=== PATIENT | male | born 1990 | race Caucasian/White ===

== ENCOUNTER 2021-10-26 22:06 | Emergency (ER) | payer OTHER ==
[~2021-10-26 22:06] MED LIST: IBUPROFEN800 MG PO
[2021-10-27 01:39] LABS: BASOPHIL 0.3 % (0-2); EOSINOPHIL 0.1 % (0-5); HCT 48.7 % (42.0-52.0); HGB 16.7 g/dl (13.2-18.0); MCH 32.4 pg (25.0-31.0); MCHC 34.3 g/dL (32.0-36.0); MCV 94.6 fL (78.0-100.0); MONOCYTE 6.4 % (0-12); MPV 10.9 fL (6.0-9.5); NEUTROPHIL 79.1 % (41-80); NRBC 0; PLT 211 K/uL (150-400); RBC 5.15 M/uL (4.70-6.00); RDW 12.2 % (11.5-14.0); WBC 7.2 K/uL (4.0-10.5)
[2021-10-27 02:22] LABS: ALBUMIN 4.3 g/dL (3.4-5.0); BILIRUBIN - TOTAL 0.2 mg/dL (0.2-1.0); BUN/CREAT RATIO (CALC) 12.2 RATIO; CREATININE 0.82 mg/dL (0.67-1.17); GLOBULIN (CALCULATION) 3.3 g/dL; POTASSIUM 3.8 mmol/L (3.5-5.1); TOTAL PROTEIN 7.6 g/dL (6.4-8.2)
[2021-10-27 02:44] LABS: INFLUENZA A NAA NEGATIVE (NEGATIVE)
[2021-10-27 02:46] LABS: CORONAVIRUS 2019 SARS-COV-2 POSITIVE (NEGATIVE)
[2021-10-27] MEDS ORDERED: PREDNISONE 20MG20 MG PO (02:52)
[2021-10-27] MEDS ORDERED: ONDANSETRON ODT4 MG PO (02:52)
== END 2021-10-27 03:09 | disposition home or self-care (01) ==
LOC: FER 22:06
PROVIDERS: Internal Medicine
DX: U07.1 COVID-19 (principal); Z88.1 Allergy status to other antibiotic agents
CPT/HCPCS: 36415; 71045; 80053; 84145; 84484; 85025; 93005; J1100; U0002